=== PATIENT | female | born 1995 | race Caucasian/White ===

== ENCOUNTER 2016-11-07 20:23 | Emergency (ER) | payer SELFPAY ==
[~2016-11-07 20:23] MED LIST: BACT800T5 PO; LEVA750T9 PO; PHEN12.5 PO; PHEN12.5 PR; PROT40TA PO
[2016-11-07 20:29] VITALS: BP 119/96; PULSE 99; RESP 20; TEMP 98.3; O2SAT 99
[2016-11-07] MEDS ORDERED: SODIUM CHLOR 0.9% 1000 ML INJ 1,000 ML IV SCH (20:40)
[2016-11-07] MEDS ORDERED: ALUMINUM/MAGNESIUM/SIMETH 30 ML CUP PO ONE (20:45)
[2016-11-07] MEDS ORDERED: SODIUM CHLORIDE 0.9% FLUSH 10 ML FLUSH IV FLUSH PRN (20:45)
[2016-11-07] MEDS ORDERED: LIDOCAINE VISCOUS 2% SOLN 15 ML UDC PO ONE (20:45)
[2016-11-07] MEDS ORDERED: ONDANSETRON HCL 4 MG/2 ML VIAL IVP ONE (20:45)
[2016-11-07] MEDS ORDERED: PANTOPRAZOLE SODIUM 40 MG VIAL IV PUSH ONE (20:45)
--- NOTE | 2016-11-07 20:45 | PD ---
HPI Chief Complaint: Abdominal Pain Time Seen by Provider: 20:34 Travel History International Travel<30 days: No Contact w/Intl Traveler<30days: No Traveled to known affect area: No History of Present Illness HPI 21-year-old female with history of gastritis here for evaluation of abdominal pain. Pain started yesterday at around 5:00 PM and has been constant, described as burning/pressure, moderate, mid abdomen, worse with movements and palpation. Pain is associated with nausea and vomiting. Emesis has been clear , nonbloody. She denies any history of abdominal surgeries. Patient has also noticed a cold sore on her right lower lip, and states that since around 5:00 PM yesterday she has felt somewhat uncoordinated. No paresthesias. She has not had any fever. She does not drink alcohol. She denies tobacco use. She denies illicit drug use. LMP was October 20. PFSH Past Medical History ADHD: Yes Diminished Hearing: No Gastrointestinal Disorders: Yes (GASTRITIS) GERD: Yes Genitourinary: Yes (UTI hx) Immunizations Current: Yes Social History Alcohol Use: No Tobacco Use: No Substance Use: No Allergies-Medications (Allergen,Severity, Reaction): Coded Allergies: No Known Allergies (Unverified , 11/07/16) Reported Meds & Prescriptions Reported Meds & Active Scripts Active Review of Systems Except as stated in HPI: all other systems reviewed are Neg Physical Exam Narrative GENERAL: Well-developed, well-nourished, awake, alert, GCS 15, no acute distress , ambulated from triage to exam room without difficulty and without assistance. SKIN: Focused skin assessment warm/dry. No rash. HEAD: Atraumatic. Normocephalic. EYES: Pupils equal and round. No scleral icterus. No injection or drainage. ENT: Mucous membranes pink and moist. 2 small vesicular lesions on right lower/ outer lip. NECK: Trachea midline. No JVD. CARDIOVASCULAR: Regular rate and rhythm. RESPIRATORY: No accessory muscle use. Clear to auscultation. Breath sounds equal bilaterally. GASTROINTESTINAL: Abdomen soft, nondistended. Moderate diffuse tenderness without peritoneal signs. Abdominal palpation causes nausea. MUSCULOSKELETAL: No obvious deformities. No clubbing. No cyanosis. No edema. NEUROLOGICAL: Awake and alert. No obvious cranial nerve deficits. Motor grossly within normal limits. Normal speech. No focal deficits. Normal finger- nose-finger test bilaterally. No pronator drift. Normal muscle strength in all 4 extremities. PSYCHIATRIC: Appropriate mood and affect; insight and judgment normal. Data Data Last Documented VS Vital Signs Date Time Temp Pulse Resp B/P Pulse Ox O2 Delivery O2 Flow Rate FiO2 11/07/16 21:47 80 18 100/68 100 Room Air 11/07/16 20:29 98.3 Orders Beta Hcg (Quant/Titer) (11/07/16 20:40) Complete Blood Count With Diff (11/07/16 20:40) Comprehensive Metabolic Panel (11/07/16 20:40) Lipase (11/07/16 20:40) Prothrombin Time / Inr (Pt) (11/07/16 20:40) Act Partial Throm Time (Ptt) (11/07/16 20:40) Urinalysis - C+S If Indicated (11/07/16 20:40) Ct Abd/Pel W Iv Contrast(Rout) (11/07/16 20:40) Iv Access Insert/Monitor (11/07/16 20:40) Ecg Monitoring (11/07/16 20:40) Oximetry (11/07/16 20:40) Ondansetron Inj (Zofran Inj) (11/07/16 20:45) Sodium Chlor 0.9% 1000 Ml Inj (Ns 1000 M (11/07/16 20:40) Sodium Chloride 0.9% Flush (Ns Flush) (11/07/16 20:45) Al-Mag Hy-Si 40-40-4 Mg/Ml Liq (Mag-Al P (11/07/16 20:45) Lidocaine 2% Viscous (Xylocaine 2% Visco (11/07/16 20:45) Pantoprazole Inj (Protonix Inj) (11/07/16 20:45) Urine Culture (11/07/16 21:00) Morphine Inj (Morphine Inj) (11/07/16 21:30) Ceftriaxone Inj (Rocephin Inj) (11/07/16 21:45) Ondansetron Inj (Zofran Inj) (11/07/16 21:45) Iohexol 350 Inj (Omnipaque 350 Inj) (11/07/16 22:12) Labs Laboratory Tests Test 11/07/16 21:00 White Blood Count 5.2 TH/MM3 Red Blood Count 4.61 MIL/MM3 Hemoglobin 13.1 GM/DL Hematocrit 40.0 % Mean Corpuscular Volume 86.8 FL Mean Corpuscular Hemoglobin 28.4 PG Mean Corpuscular Hemoglobin 32.7 % Concent Red Cell Distribution Width 14.2 % Platelet Count 276 TH/MM3 Mean Platelet Volume 9.0 FL Neutrophils (%) (Auto) 72.1 % Lymphocytes (%) (Auto) 17.3 % Monocytes (%) (Auto) 9.6 % Eosinophils (%) (Auto) 0.5 % Basophils (%) (Auto) 0.5 % Neutrophils # (Auto) 3.8 TH/MM3 Lymphocytes # (Auto) 0.9 TH/MM3 Monocytes # (Auto) 0.5 TH/MM3 Eosinophils # (Auto) 0.0 TH/MM3 Basophils # (Auto) 0.0 TH/MM3 CBC Comment DIFF FINAL Differential Comment Prothrombin Time 11.3 SEC Prothromb Time International 1.0 RATIO Ratio Activated Partial 26.6 SEC Thromboplast Time Urine Color YELLOW Urine Turbidity CLOUDY Urine pH 8.0 Urine Specific [place] 1.032 Urine Protein 30 mg/dL Urine Glucose (UA) NEG mg/dL Urine Ketones TRACE mg/dL Urine Occult Blood NEG Urine Nitrite NEG Urine Bilirubin NEG Urine Leukocyte Esterase NEG Urine RBC 0-3 /hpf Urine WBC 3-5 /hpf Urine WBC Clumps FEW Urine Squamous Epithelial > 8 /hpf Cells Urine Bacteria MOD /hpf Urine Mucus FEW /lpf Microscopic Urinalysis Comment CULTURE INDICATED Sodium Level 140 MEQ/L Potassium Level 3.7 MEQ/L Chloride Level 107 MEQ/L Carbon Dioxide Level 26.9 MEQ/L Anion Gap 6 MEQ/L Blood Urea Nitrogen 19 MG/DL Creatinine 0.82 MG/DL Estimat Glomerular Filtration 87 ML/MIN Rate Random Glucose 94 MG/DL Calcium Level 9.4 MG/DL Total Bilirubin 0.3 MG/DL Aspartate Amino Transf 15 U/L (AST/SGOT) Alanine Aminotransferase 19 U/L (ALT/SGPT) Alkaline Phosphatase 87 U/L Total Protein 8.5 GM/DL Albumin 4.2 GM/DL Lipase 155 U/L Human Chorionic Gonadotropin, LESS THAN 1 Quant MIU/ML MDM Medical Decision Making Medical Screen Exam Complete: Yes Emergency Medical Condition: Yes Medical Record Reviewed: Yes Differential Diagnosis Appendicitis, UTI, Cystitis, Gastritis, appendicitis, hepatobiliary disease, peptic ulcer disease, pancreatitis, metabolic abnormality, intracranial abnormality less likely, MS, GBS unlikely Narrative Course Vital signs reviewed. CBC is unremarkable. CMP is unremarkable. Beta hCG is negative. UA: Cloudy, 30 protein, trace ketones, few wbc clumps, greater than 8 epithelial cells, moderate bacteria, few mucus. The patient was given a dose of IV Rocephin. CT abdomen pelvis: CONCLUSION: Normal examination. Patient was made aware of all findings. She is resting comfortably. She is still complaining of some periumbilical and suprapubic pain, however it is somewhat improved. On exam there are no focal neurologic findings. She has normal muscle strength in all 4 extremities. She had related from triage to her exam room without difficulty and without assistance. I believe her feeling of difficulty with coordination issues is likely secondary to her UTI. I do not believe that there is a central cause for her symptoms. At this point I believe she is stable for discharge home with outpatient follow-up with a primary care physician this week. I will give her a prescription for Bactrim for her UTI/cystitis, Pyridium, and pain medication. She was informed on when to return to the emergency department. She verbalizes understanding and agreement with plan. Diagnosis Primary Impression: UTI (urinary tract infection) Qualified Code: N30.00 - Acute cystitis without hematuria Additional Impression: Abdominal pain Qualified Code: R10.33 - Periumbilical abdominal pain Referrals: [facility] 3 days Primary Care Physician 3 days Additional Instructions: Follow-up with a primary care physician this week. Return to the emergency department for worsening symptoms or any other concerns. Scripts Hydrocodone-Acetaminophen (Lortab)5-325 Mg Tab1 Tab PO Q6H PRN (PAIN) #10 TAB Ref 0 Prov:Kevin Rodriguez MD 11/07/16 Phenazopyridine (Pyridium)100 Mg Flj428 Mg PO Q8H PRN (DYSURIA) #15 TAB Ref 0 Prov:Kevin Rodriguez MD 11/07/16 Sulfamethoxazole-Trimethoprim (Bactrim DS)800-160 Mg Tab1 Tab PO BID #14 TAB Ref 0 Prov:Kevin Rodriguez MD 11/07/16 Disposition: 01 DISCHARGE HOME Condition: Stable Kevin Rodriguez MD Nov 07, 2016 20:45
[2016-11-07 20:52] VITALS: O2SAT 98
[2016-11-07 21:10] LABS: AUTOMATED NEUTROPHIL # 3.8 TH/MM3 (1.8-7.7); BASOPHIL % 0.5 % (0.0-2.0); EOSINOPHIL % 0.5 % (0.0-4.0); LYMPH % 17.3 % (9.0-44.0); LYMPHOCYTE # 0.9 TH/MM3 (1.0-4.8); MEAN CELL VOLUME 86.8 FL (80.0-100.0); MEAN CORPUSCULAR HEMOGLOBIN 28.4 PG (27.0-34.0); MEAN CORPUSCULAR HGB CONC 32.7 % (32.0-36.0); MONO % 9.6 % (0.0-8.0); NEUT % 72.1 % (16.0-70.0); PLATELET COUNT 276 TH/MM3 (150-450); RED BLOOD COUNT 4.61 MIL/MM3 (4.00-5.30); RED CELL DISTRIBUTION WIDTH 14.2 % (11.6-17.2); WHITE BLOOD COUNT 5.2 TH/MM3 (4.0-11.0)
[2016-11-07 21:13] LABS: BLOOD, URINE NEG (NEG); GLUCOSE,URINE NEG (NEG); KETONE, URINE TRACE mg/dL (NEG); NITRITE,URINE NEG (NEG)
[2016-11-07 21:19] LABS: BACTERIA, URINE MOD /hpf; CHLORIDE 107 MEQ/L (98-107); COMMENT (UR) CULTURE INDICATED; CULTURE IF INDICATED CULTURE INDICATED; MUCUS URINE FEW /lpf (OCC); POTASSIUM 3.7 MEQ/L (3.5-5.1); RBC, URINE 0-3 /hpf (0-3); SODIUM (NA) 140 MEQ/L (136-145); SQUAMOUS EPITHELIAL CELL URINE > 8 /hpf (0-5); URINE COLOR YELLOW (YELLW/STRAW)
[2016-11-07 21:22] VITALS: BP 129/77; PULSE 99; RESP 18; O2SAT 99
[2016-11-07 21:23] LABS: ANION GAP 6 MEQ/L (5-15); BICARBONATE 26.9 MEQ/L (21.0-32.0); BLOOD UREA NITROGEN 19 MG/DL (7-18)
[2016-11-07 21:24] LABS: APTT (PATIENT) 26.6 SEC (24.3-30.1); PROTHROMBIN TIME - PATIENT 11.3 SEC (9.8-11.6)
[2016-11-07 21:25] LABS: ALT (GPT) 19 U/L (10-53); AST (GOT) 15 U/L (15-37)
[2016-11-07 21:26] LABS: GLOMERULAR FILTRATION RATE 87 ML/MIN (>89)
[2016-11-07 21:27] LABS: TOTAL BILIRUBIN ADULT 0.3 MG/DL (0.2-1.0)
[2016-11-07 21:28] LABS: ALKALINE PHOSPHATASE 87 U/L (45-117)
[2016-11-07] MEDS ORDERED: MORPHINE SULFATE 4 MG/ML INJ IV PUSH ONE (21:30)
[2016-11-07 21:31] LABS: BETA HCG QUANT LESS THAN 1 MIU/ML (0-5)
[2016-11-07 21:33] LABS: HEMO FLAGS DIFF FINAL
[2016-11-07] MEDS ORDERED: ONDANSETRON HCL 4 MG/2 ML VIAL IV PUSH ONE (21:45)
[2016-11-07] MEDS ORDERED: cefTRIAXone INJ 1,000 MG in SODIUM CHLORIDE 0.9% INJ 100 ML IV ONE (21:45)
[2016-11-07 21:47] VITALS: BP 100/68; PULSE 80; RESP 18; O2SAT 100
[2016-11-07] MEDS ORDERED: IOHEXOL 350 MG/ML 10 ML VIAL (for RAD DIAG) IV ONE (22:12)
--- NOTE | 2016-11-07 22:23 | RADHPO ---
EXAM DATE/TIME: 11/07/2016 21:54 [facility] COMPARISON: CT ABDOMEN & PELVIS W CONTRAST, November 20, 2014, 15:56. INDICATIONS : Diffuse abdominal pain. IV CONTRAST: 90 cc Omnipaque 350 (iohexol) IV ORAL CONTRAST: No oral contrast ingested. RADIATION DOSE: 7.69 CTDIvol (mGy) MEDICAL HISTORY : Gastroesophageal reflux disease. Gastritis. SURGICAL HISTORY : None. ENCOUNTER: Initial ACUITY: 2 days PAIN SCALE: 8/10 LOCATION: All quadrants. TECHNIQUE: Volumetric scanning of the abdomen and pelvis was performed. Using automated exposure control and ad justment of the mA and/or kV according to patient size, radiation dose was kept as low as reasonably achievable to obtain optimal diagnostic quality images. FINDINGS: LOWER LUNGS: The visualized lower lungs are clear. LIVER: Homogeneous density without lesion. There is no dilation of the biliary tree. No calcified gallston es. SPLEEN: Normal size without lesion. PANCREAS: Within normal limits. KIDNEYS: Normal in size and shape. There is no mass, stone or hydronephrosis. ADRENAL GLANDS: Within normal limits. VASCULAR: There is no aortic aneurysm. BOWEL/MESENTERY: The stomach, small bowel, and colon demonstrate no acute abnormality. There is no free intraperitone al air or fluid. ABDOMINAL WALL: Within normal limits. RETROPERITONEUM: There is no lymphadenopathy. BLADDER: No wall thickening or mass. REPRODUCTIVE: Within normal limits. INGUINAL: There is no lymphadenopathy or hernia. MUSCULOSKELETAL: Within normal limits for patient age. CONCLUSION: Normal examination. Nash Gatica Jr., MD on November 07, 2016 at 22:17 Board Certified Radiologist. This report was verified electronically.
[2016-11-07] MEDS ORDERED: BACT800T5 PO (22:35)
[2016-11-07] MEDS ORDERED: HYDR-3533 PO (22:35)
[2016-11-07] MEDS ORDERED: PHEN0.4T PO (22:35)
[2016-11-07] MEDS ORDERED: DICYCLOMINE HCL 10 MG CAP PO ONE (22:45)
[2016-11-07] MEDS ORDERED: PHENAZOPYRIDINE HCL 200 MG TAB PO ONE (22:45)
[2016-11-07 23:03] VITALS: BP 100/71; TEMP 98.2
== END 2016-11-07 23:13 | disposition home or self-care (01) ==
LOC: PHED 20:23
DX: N30.00 Acute cystitis without hematuria (principal); R10.33 Periumbilical pain; R11.2 Nausea with vomiting, unspecified; R27.8 Other lack of coordination; Z87.19 Personal history of other diseases of the digestive system; Z86.59 Personal history of other mental and behavioral disorders; Z87.440 Personal history of urinary (tract) infections
CPT/HCPCS: 74177; 80053; 81001; 83690; 84702; 85025; 85610; 85730; 87086; 96361; 96365; 96375; 96376; 99285; C9113; J0696; J2270; J2405; J7030; Q9967